=== PATIENT | male | born 1960 | race Caucasian/White ===

== ENCOUNTER 2019-10-31 07:26 | Inpatient (IN) | payer SELFPAY ==
[~2019-10-31] VITALS: Ht 167.6 cm; Wt 93.0 kg
[2019-10-31] MEDS ORDERED: ASPI-864 PO (07:37)
[2019-10-31] MEDS ORDERED: APIX2.5T PO (07:37)
[2019-10-31] MEDS ORDERED: CLOP75TA4 PO (07:37)
[2019-10-31] MEDS ORDERED: METO-396 PO (07:37)
[2019-10-31] MEDS ORDERED: LISI10TA5 PO (07:37)
[2019-10-31] MEDS ORDERED: FURO-152 PO (07:37)
[2019-10-31] MEDS ORDERED: MORPHINE SULFATE 4 MG/ML CPJ (NOT FOR IM USE) IV STA (07:41)
[2019-10-31 09:01] LABS: CHLORIDE 109 mEq/L (98-107)
[2019-10-31 09:03] LABS: HEMATOCRIT. 33.5 % (42.0-52.0); HEMOGLOBIN. 10.5 g/dL (14.0-18.0); MEAN CORPUSCULAR HEMOGLOBIN 22.3 pg (28.0-32.0); MEAN CORPUSCULAR VOLUME 71.1 fL (80.0-94.0); RED BLOOD CELL COUNT 4.71 mill/uL (4.7-6.1); RED CELL DISTRIBUTION WIDTH 19.9 % (11.6-14.6)
[2019-10-31 09:32] LABS: PLATELET ESTIMATE DECREASED
[2019-10-31] MEDS ORDERED: OXYCODONE HCL/ACETAMINOPHEN 5/325MG TABLET PO ONE ×2 (10:45→11:15)
[2019-10-31] MEDS ORDERED: MORPHINE SULFATE 4 MG/ML CPJ (NOT FOR IM USE) IV ONE (12:45)
[2019-10-31] MEDS ORDERED: MORPHINE SULFATE 2 MG/ML CPJ (NOT FOR IM USE) IV NR (15:45)
[2019-10-31] MEDS ORDERED: NITROGLYCERIN OINT 1GM/INCH UDPKT TD ONE (16:32)
[2019-10-31] MEDS ORDERED: METOPROLOL TARTRATE 5MG/5ML VIAL IV ONE (16:38)
[2019-10-31] MEDS ORDERED: LABETALOL 5MG/ML SYR 20 MG/4 ML SYRINGE IV ONE (16:49)
[2019-10-31] MEDS ORDERED: NITROGLYCERIN OINT 1GM/INCH UDPKT TD SCH ×2 (17:00→18:00)
[2019-10-31] MEDS ORDERED: LABETALOL 5MG/ML SYR 20 MG/4 ML SYRINGE IV PRN (17:00)
[2019-10-31] MEDS ORDERED: METOPROLOL TARTRATE 50MG TABLET PO SCH (17:15)
[2019-10-31] MEDS ORDERED: MAGNESIUM/ALUMINUM HYDROXIDE/SIMETHICONE 30ML UDC PO PRN (18:45)
[2019-10-31 19:37] LABS: D-DIMER 0.43 mg/L FEU (<0.50); INR 1.1; PARTIAL THROMBOPLASTIN TIME 20.7 sec (23.4-31.0)
[2019-10-31 19:41] LABS: *AMPHETAMINES SCREEN URINE NEGATIVE (NEGATIVE); *BARBITURATES SCREEN URINE NEGATIVE (NEGATIVE); *BENZODIAZEPINES SCREEN URINE NEGATIVE (NEGATIVE); *COCAINE SCREEN URINE NEGATIVE (NEGATIVE); METHADONE URINE SCREEN NEGATIVE (NEGATIVE); OPIATES URINE SCREEN PRESUMTIVE POSITIVE (NEGATIVE)
[2019-10-31] MEDS ORDERED: IOHEXOL-350 100 ML BOTTLE ONE ×2 (19:41→22:09)
[2019-10-31 19:42] LABS: CANNABINOID URINE SCREEN NEGATIVE (NEGATIVE); PHENCYCLIDINE URINE SCREEN NEGATIVE (NEGATIVE)
[2019-10-31] MEDS ORDERED: ATORVASTATIN CALCIUM 40MG TABLET PO SCH (21:00)
[2019-10-31] MEDS ORDERED: AMLODIPINE 5MG TABLET PO SCH (21:00)
[2019-10-31] MEDS ORDERED: GABAPENTIN 400MG CAPSULE PO NR (21:15)
[2019-10-31] MEDS ORDERED: OXYCODONE HCL 20MG TABLET SR 12HR PO SCH (21:15)
[2019-11-01] VITALS (18 sets, daily range): BP systolic 118–180; BP diastolic 67–125
[2019-11-01] MEDS ORDERED: AMLODIPINE 5MG TABLET PO NR (00:30)
[2019-11-01] MEDS ORDERED: GABAPENTIN 400MG CAPSULE PO SCH (06:00)
[2019-11-01] MEDS ORDERED: HYDRALAZINE HCL 25MG TABLET PO SCH (08:00)
[2019-11-01] MEDS: METOPROLOL TARTRATE 50MG TABLET PO SCH ×2 (08:14→20:35)
[2019-11-01] MEDS: PANTOPRAZOLE 40MG DR TABLET PO SCH ×2 (08:14→20:34)
[2019-11-01] MEDS: CLOPIDOGREL 75MG TABLET PO SCH (08:14)
[2019-11-01] MEDS: LISINOPRIL 20MG TABLET PO SCH (08:14)
[2019-11-01] MEDS: ASPIRIN 81MG EC TABLET PO SCH (08:15)
[2019-11-01] MEDS: OXYCODONE HCL 20MG TABLET SR 12HR PO SCH ×2 (08:15→21:50)
[2019-11-01] MEDS: TAMSULOSIN HCL 0.4MG SR CAPSULE PO SCH (08:15)
[2019-11-01] MEDS: GABAPENTIN 400MG CAPSULE PO SCH ×3 (08:15→21:47)
[2019-11-01] MEDS: NITROGLYCERIN OINT 1GM/INCH UDPKT TD SCH ×2 (08:28→12:23)
[2019-11-01 09:32] LABS: BASOPHILS % 1.2 % (0.0-2.0); EOSINOPHILS % 7.3 % (0.0-5.0); HEMATOCRIT. 29.9 % (42.0-52.0); HEMOGLOBIN. 9.1 g/dL (14.0-18.0); LYMPHOCYTES % 23.6 % (20.0-50.0); MEAN CORPUSCULAR VOLUME 71.9 fL (80.0-94.0); MONOCYTES % 8.5 % (2.0-8.0); NEUTROPHILS % 59.4 % (40.0-76.0); RED BLOOD CELL COUNT 4.15 mill/uL (4.7-6.1); RED CELL DISTRIBUTION WIDTH 19.8 % (11.6-14.6)
[2019-11-01 09:51] LABS: CHLORIDE 105 mEq/L (98-107)
[2019-11-01] MEDS ORDERED: AMLODIPINE 5MG TABLET PO SCH (10:00)
[2019-11-01] MEDS ORDERED: SODIUM CHLORIDE 0.45% 1,000 ML IV SCH (10:00)
[2019-11-01 10:17] LABS: MEAN PLATELET VOLUME 9.3 fl (7.4-10.4); PLATELET 171 x1000/uL (130-400)
[2019-11-01] MEDS ORDERED: LIDOCAINE HCL 1% 20ML VIAL (Pyxis) INJ ONE (12:45)
[2019-11-01] MEDS ORDERED: IODIXANOL 320MG/ML 100 ML BOTTLE IV ONE (12:45)
[2019-11-01] MEDS ORDERED: FENTANYL CITRATE/PF 50MCG/ML 2ML VIAL ONE (12:46)
[2019-11-01] MEDS ORDERED: MIDAZOLAM HCL 2 MG/2 ML VIAL ONE (12:46)
[2019-11-01] MEDS ORDERED: ASPIRIN/SOD BICARB/CITRIC ACID 324MG TAB EFF ONE (12:48)
[2019-11-01] MEDS ORDERED: ONDANSETRON HCL 4MG/2ML INJ IV PRN (13:30)
[2019-11-01] MEDS ORDERED: ATROPINE SULFATE 1MG/10ML SYR IV PRN (13:30)
[2019-11-01] MEDS ORDERED: ACETAMINOPHEN 325MG TABLET PO PRN (13:30)
[2019-11-01] MEDS ORDERED: SODIUM CHLORIDE 0.45% 1,000 ML IV ONE (13:30)
[2019-11-01] MEDS: HYDRALAZINE HCL 50MG TABLET PO SCH ×2 (14:00→21:53)
[2019-11-01] MEDS: SODIUM CHLORIDE 0.9% INJ 3ML FLUSH IVF SCH ×2 (14:00→21:50)
[2019-11-01] MEDS: AMLODIPINE 5MG TABLET PO SCH (20:35)
[2019-11-01] MEDS ORDERED: ATORVASTATIN CALCIUM 40MG TABLET PO SCH (21:00)
[2019-11-01] MEDS ORDERED: LORAZEPAM 1MG TABLET PO PRN (21:30)
[2019-11-02] VITALS (10 sets, daily range): BP systolic 119–170; BP diastolic 50–94
[2019-11-02] MEDS: HYDRALAZINE HCL 50MG TABLET PO SCH (05:54)
[2019-11-02] MEDS: SODIUM CHLORIDE 0.9% INJ 3ML FLUSH IVF SCH (05:54)
[2019-11-02] MEDS: PANTOPRAZOLE 40MG DR TABLET PO SCH (05:54)
[2019-11-02] MEDS: GABAPENTIN 400MG CAPSULE PO SCH (05:59)
[2019-11-02 07:04] LABS: BASOPHILS % 1.7 % (0.0-2.0); EOSINOPHILS % 10.6 % (0.0-5.0); HEMATOCRIT. 30.3 % (42.0-52.0); HEMOGLOBIN. 9.4 g/dL (14.0-18.0); LYMPHOCYTES % 23.3 % (20.0-50.0); MEAN CORPUSCULAR HEMOGLOBIN 22.2 pg (28.0-32.0); MEAN CORPUSCULAR VOLUME 71.7 fL (80.0-94.0); MEAN PLATELET VOLUME 9.2 fl (7.4-10.4); MONOCYTES % 9.4 % (2.0-8.0); PLATELET 190 x1000/uL (130-400); RED BLOOD CELL COUNT 4.22 mill/uL (4.7-6.1); RED CELL DISTRIBUTION WIDTH 19.7 % (11.6-14.6)
[2019-11-02 07:54] LABS: CHLORIDE 103 mEq/L (98-107)
[2019-11-02] MEDS: TAMSULOSIN HCL 0.4MG SR CAPSULE PO SCH (08:38)
[2019-11-02] MEDS: METOPROLOL TARTRATE 50MG TABLET PO SCH (08:38)
[2019-11-02] MEDS: AMLODIPINE 5MG TABLET PO SCH (08:39)
[2019-11-02] MEDS: LISINOPRIL 20MG TABLET PO SCH (08:39)
[2019-11-02] MEDS: CLOPIDOGREL 75MG TABLET PO SCH (08:40)
[2019-11-02] MEDS: OXYCODONE HCL 20MG TABLET SR 12HR PO SCH (08:40)
[2019-11-02] MEDS: ASPIRIN 81MG EC TABLET PO SCH (08:41)
== END 2019-11-02 15:34 | disposition home or self-care (01) | DRG 191 ==
LOC: ER 08:03 → EDBEDREQ 11:15 → CANRESERV 15:39 → ENRESERV 15:39 → EDBEDREQ 17:02 → EDBEDREQSVC 17:02 → EDBEDREQTM 17:02 → CANRESERV 22:58 → ENRESERV 22:58 → EDBEDREQSVC 11-01 03:44 → 5EST 11-01 03:46 → EDBEDREQTM 11-01 03:49 → ENRESERV 11-01 04:45 → 3WST 11-01 15:30
PROVIDERS: ADMIT Internal Medicine; ATTEND Internal Medicine
PROC: B54NZZA Ultrasonography of Left Upper Extremity Veins, Guidance (ICD-10-PCS; 2019-10-31)
PROC: 05HY33Z Insertion of Infusion Device into Upper Vein, Percutaneous Approach (ICD-10-PCS; 2019-10-31)
PROC: 4A023N7 Measurement of Cardiac Sampling and Pressure, Left Heart, Percutaneous Approach (ICD-10-PCS; principal; 2019-11-01)
PROC: B2111ZZ Fluoroscopy of Multiple Coronary Arteries using Low Osmolar Contrast (ICD-10-PCS; 2019-11-01)
DX: I25.110 Atherosclerotic heart disease of native coronary artery with unstable angina pectoris (principal); I11.0 Hypertensive heart disease with heart failure; I50.9 Heart failure, unspecified; E78.00 Pure hypercholesterolemia, unspecified; E78.5 Hyperlipidemia, unspecified; I48.0 Paroxysmal atrial fibrillation; K21.9 Gastro-esophageal reflux disease without esophagitis; N40.0 Benign prostatic hyperplasia without lower urinary tract symptoms; Z79.01 Long term (current) use of anticoagulants; I69.351 Hemiplegia and hemiparesis following cerebral infarction affecting right dominant side; Z82.49 Family history of ischemic heart disease and other diseases of the circulatory system; Z86.711 Personal history of pulmonary embolism; Z91.19 Patient's noncompliance with other medical treatment and regimen; I25.2 Old myocardial infarction; Z95.0 Presence of cardiac pacemaker; Z95.5 Presence of coronary angioplasty implant and graft; Z95.828 Presence of other vascular implants and grafts; Z79.82 Long term (current) use of aspirin; Z79.899 Other long term (current) drug therapy; Z80.9 Family history of malignant neoplasm, unspecified
CPT/HCPCS: 36415; 71045; 71275; 74174; 76937; 80048; 80305; 83880; 84484; 85379; 93005; 93306; 93458; 99285; C1725; C1769; C1893; J1644; J2250; J2270; J3010; J3490; Q9967